=== PATIENT | female | born 1950 | race American Indian/Alaskan Native ===

== ENCOUNTER 2017-07-02 06:00 | Observation (INO) | payer MEDICARE, OTHER ==
[2017-07-02] MEDS ORDERED: Nitroglycerin 0.4 MG Tab.SL SL PRN (06:03)
[2017-07-02] MEDS ORDERED: Sodium Chloride 0.9% 1,000 ML IV ONE (06:03)
[2017-07-02] MEDS ORDERED: Aspirin 81 MG Tab.Chew PO ONE (06:03)
[2017-07-02] MEDS ORDERED: Metoprolol Tartrate 5 MG/5 ML SDV IVPUSH ONE (06:04)
--- NOTE | 2017-07-02 06:07 | EDM.PDOC ---
ED HPI GENERAL MEDICAL PROBLEM - General Stated Complaint: POSSIBLE HEART ATTACK Time Seen by Provider: 07/02/17 06:05 Source of Information: Reports: Patient - History of Present Illness INITIAL COMMENTS - FREE TEXT/NARRATIVE: HISTORY AND PHYSICAL: History of present illness: Patient presents by private vehicle Patient has had some left chest discomfort noted yesterday afternoon she woke this morning due to pain rates 5 out of 10 more left shoulder radiating down the left arm worsened by movement of the left arm not associated with this shortness of breath or diaphoresis No fever nausea vomiting chills sweats no headache dizziness or palpitation no bowel or urine symptoms History of diabetes Review of systems: As per history of present illness and below otherwise all systems reviewed and negative. Past medical history: As per history of present illness and as reviewed below otherwise noncontributory. Surgical history: As per history of present illness and as reviewed below otherwise noncontributory. Social history: No reported history of drug or alcohol abuse. Family history: As per history of present illness and as reviewed below otherwise noncontributory. Physical exam: HEENT: Atraumatic, normocephalic, pupils reactive, negative for conjunctival pallor or scleral icterus, mucous membranes moist, throat clear, neck supple, nontender, trachea midline. Lungs: Clear to auscultation, breath sounds equal bilaterally, chest nontender. Heart: S1S2, regular, negative for clicks, rubs, or JVD. Abdomen: Soft, nondistended, nontender. Negative for masses or hepatosplenomegaly. Negative for costovertebral tenderness. Pelvis: Stable nontender. Genitourinary: Deferred. Rectal: Deferred. Extremities: Atraumatic, negative for cords or calf pain. Neurovascular unremarkable. Neuro: Awake, alert, oriented. Cranial nerves II through XII unremarkable. Cerebellum unremarkable. Motor and sensory unremarkable throughout. Exam nonfocal. Diagnostics: []Lab as below EKG Chest 1 view Therapeutics: []1 L normal saline Aspirin 324 mg chewable Nitrostat 0.4 mg sublingual Lopressor 5 mg IV Impression: ACS Definitive disposition and diagnosis as appropriate pending reevaluation and review of above. Letf shoulder Pain Score (Numeric/FACES): 3 - Related Data Allergies Allergy/AdvReac Type Severity Reaction Status Date / Time codeine Allergy Hallucinati Verified 07/02/17 06:22 ons Home Meds: Home Meds Potassium Chloride 8 meq PO 07/02/17 [History] Saxagliptin HCl [Onglyza] 5 mg PO 07/02/17 [History] Telmisartan 40 mg PO 07/02/17 [History] Travoprost [Travatan Z] 2.5 ml OP 07/02/17 [History] metFORMIN [Glucophage] 500 mg PO WITHDINNER 07/02/17 [History] traMADol HCl [Tramadol HCl] 50 mg PO Q6H 07/02/17 [History] ED ROS GENERAL - Review of Systems Review Of Systems: ROS reveals no pertinent complaints other than HPI. ED EXAM, GENERAL - Physical Exam Exam: See Below Course - Vital Signs Last Recorded V/S: Last Vital Signs Temp 36.4 C 07/02/17 06:22 Pulse 55 L 07/02/17 07:10 Resp 20 07/02/17 06:22 BP 145/67 H 07/02/17 07:10 Pulse Ox 96 07/02/17 06:22 - Orders/Labs/Meds Orders: Active Orders 24 hr Category Date Time Status EKG Documentation Completion [RC] STAT Care 07/02/17 06:03 Active Chest 1V Frontal [CR] Stat Exams 07/02/17 06:03 Taken UA W/MICROSCOPIC [URIN] Stat Lab 07/02/17 06:03 Uncollected Nitroglycerin [Nitrostat] Med 07/02/17 06:03 Active 0.4 mg SL Q5M PRN Medication Orders Nitroglycerin (Nitrostat) 0.4 mg SL Q5M PRN PRN Reason: Chest Pain Last Admin: 07/02/17 06:33 Dose: 0.4 mg Labs: Laboratory Tests 07/02/17 07/02/17 07/02/17 Range/Units 06:20 06:20 06:20 WBC 10.33 (4.0-11.0) K/uL RBC 4.79 (4.30-5.90) M/uL Hgb 13.2 (12.0-16.0) g/dL Hct 40.5 (36.0-46.0) % MCV 84.6 (80.0-98.0) fL MCH 27.6 (27.0-32.0) pg MCHC 32.6 (31.0-37.0) g/dL RDW Std Deviation 47.0 (28.0-62.0) fl RDW Coeff of Fredrick 15 (11.0-15.0) % Plt Count 278 (150-400) K/uL MPV 10.50 (7.40-12.00) fL Neut % (Auto) 65.5 (48.0-80.0) % Lymph % (Auto) 25.8 (16.0-40.0) % [place] % (Auto) 6.3 (0.0-15.0) % Eos % (Auto) 2.2 (0.0-7.0) % Baso % (Auto) 0.2 (0.0-1.5) % Neut # (Auto) 6.8 H (1.4-5.7) K/uL Lymph # (Auto) 2.7 H (0.6-2.4) K/uL [place] # (Auto) 0.7 (0.0-0.8) K/uL Eos # (Auto) 0.2 (0.0-0.7) K/uL Baso # (Auto) 0.0 (0.0-0.1) K/uL Nucleated RBC % 0.0 /100WBC Nucleated RBCs # 0 K/uL Sodium 140 (136-146) mmol/L Potassium 4.2 (3.5-5.1) mmol/L Chloride 106 (98-110) mmol/L Carbon Dioxide 24 (21-31) mmol/L BUN 26 H (6.0-23.0) mg/dL Creatinine 0.9 (0.6-1.5) mg/dL Est Cr Clr Drug Dosing 47.32 mL/min Estimated GFR (MDRD) > 60.0 ml/min Glucose 335 H (60-110) mg/dL Calcium 9.7 (8.8-10.8) mg/dL Total Bilirubin 0.3 (0.1-1.5) mg/dL AST 10 (5-40) IU/L ALT 17 (8-54) IU/L Alkaline Phosphatase 84 (40-150) Creatine Kinase 33 (9-236) IU/L CK-MB (CK-2) 1.0 (0-6.6) ng/ml Troponin I < 0.10 (0.0-0.29) NG/ML Total Protein 7.1 (6.0-8.0) g/dL Albumin 3.8 (3.4-4.8) g/dL Globulin 3.3 (2.0-3.5) g/dL Albumin/Globulin Ratio 1.2 L (1.3-2.8) Meds: Medications Generic Name Dose Route Start Last Admin Trade Name Freq PRN Reason Stop Dose Admin Nitroglycerin 0.4 mg 07/02/17 06:03 07/02/17 06:33 Nitrostat SL 0.4 mg Q5M PRN Administration Chest Pain Discontinued Medications Generic Name Dose Route Start Last Admin Trade Name Freq PRN Reason Stop Dose Admin Aspirin 324 mg 07/02/17 06:03 07/02/17 06:44 Aspirin PO 07/02/17 06:04 324 mg ONETIME ONE Administration Sodium Chloride 1,000 mls @ 999 mls/hr 07/02/17 06:03 07/02/17 06:33 Normal Saline IV 07/02/17 07:03 999 mls/hr STAT ONE Administration Metoprolol Tartrate 5 mg 07/02/17 06:04 07/02/17 07:02 Lopressor IVPUSH 07/02/17 06:05 5 mg ONETIME ONE Administration Departure - Departure Time of Disposition: 07:25 Disposition: Refer to Observation Condition: Fair Clinical Impression: Acute coronary syndrome - Discharge Information Referrals: Sunitha Bowens MD [Primary Care Provider] - - My Orders Last 24 Hours: My Active Orders 07/02/17 06:03 EKG Documentation Completion [RC] STAT Chest 1V Frontal [CR] Stat UA W/MICROSCOPIC [URIN] Stat Nitroglycerin [Nitrostat] 0.4 mg SL Q5M PRN - Assessment/Plan Last 24 Hours: My Active Orders 07/02/17 06:03 EKG Documentation Completion [RC] STAT Chest 1V Frontal [CR] Stat UA W/MICROSCOPIC [URIN] Stat Nitroglycerin [Nitrostat] 0.4 mg SL Q5M PRN
[2017-07-02 06:51] LABS: CHLORIDE,CL 106 mmol/L (98-110); SODIUM,NA 140 mmol/L (136-146)
[2017-07-02] MEDS: Insulin Aspart 100 Units/ML 3 ML Pen SUBCUT SCH ×3 (10:11→16:27)
[2017-07-02] MEDS: Acetaminophen 325 MG Tab PO PRN (11:00)
[2017-07-02] MEDS: Hydrochlorothiazide 25 MG Tab PO SCH (11:28)
--- NOTE | 2017-07-02 11:57 | PCM.HP ---
H&P History of Present Illness - General Date of Service: 07/02/17 Admit Problem/Dx: Admission Diagnosis/Problem Admission Diagnosis/Problem Acute coronary syndrome Source of Information: Patient History Limitations: Reports: No Limitations - History of Present Illness Initial Comments - Free Text/Narative: 66 yo fm with history of HTN & DM admitted for ACS. She states she woke up this morning feeling an achy pain in her left shoulder that radiated down her arm and also possibly towards her neck. The pain was continuous and she rates it 6/ 10. All movements of her arm made the pain worst. She denies ever feeling any of this pain in the past and denies any history of recent or past trauma. SHe was feeling perfectly well up until she went to sleep. When asked she also notes some pain in the base of her neck and the left lateral side that worsens with neck flexion and left lateral rotation. She denies any previous injury to her neck. She further denies any weakness, numbness, tingling, shoulder swelling , sob, cough, vision change, headache, balance dysfunction, chest pain, palpitations, tachycardia. She does report MATTHEWS for the past several weeks, mostly with walking long distances and she has noticed some swelling of her feet and calves but she denies any orthopnea or PND. She lives in [place] and sees Dr. Bowens as her PCP. She last saw her few weeks ago. For her DM she is on Metformin 1000 mg QD and Saxagliptin 5 mg daily. Her Saxagliptin was recently increased due to elevated blood glucose. Patient states that she has been checking her blood glucose at home and it has ranged from 200-300 for the past 2 weeks. Letf shoulder Pain Score (Numeric/FACES): 5 - Related Data Allergies/Adverse Reactions: Allergies Allergy/AdvReac Type Severity Reaction Status Date / Time codeine Allergy Hallucinati Verified 07/02/17 06:22 ons Home Medications: Home Meds Hydrochlorothiazide [Hydrochlorothiazide] 25 mg PO DAILY 07/02/17 [History] Potassium Chloride 8 meq PO DAILY 07/02/17 [History] Saxagliptin HCl [Onglyza] 5 mg PO DAILY 07/02/17 [History] Telmisartan 40 mg PO DAILY 07/02/17 [History] Travoprost [Travatan Z] 1 drop OP BEDTIME 07/02/17 [History] metFORMIN [Glucophage] 1,000 mg PO WITHDINNER 07/02/17 [History] traMADol HCl [Tramadol HCl] 50 mg PO Q6H 07/02/17 [History] Past Medical History HEENT History: Reports: Cataract Cardiovascular History: Reports: Hypertension Endocrine/Metabolic History: Reports: Diabetes, Type II - Infectious Disease History Infectious Disease History: Reports: Chicken Pox, Measles, Mumps - Past Surgical History Cardiovascular Surgical History: Reports: None Social & Family History - Family History Family Medical History: Noncontributory - Tobacco Use Smoking Status *Q: Never Smoker - Caffeine Use Caffeine Use: Reports: Coffee - Recreational Drug Use Recreational Drug Use: No H&P Review of Systems - Review of Systems: Review Of Systems: See Below General: Reports: No Symptoms HEENT: Reports: No Symptoms Pulmonary: Reports: No Symptoms. Denies: Shortness of Breath, Wheezing, Pleuritic Chest Pain, Cough, Sputum, Hemoptysis Cardiovascular: Reports: Dyspnea on Exertion, Edema. Denies: Chest Pain, Palpitations, Orthopnea, PND, Lightheadedness, Syncope Gastrointestinal: Reports: No Symptoms Genitourinary: Reports: No Symptoms Musculoskeletal: Reports: Neck Pain, Shoulder Pain Skin: Reports: No Symptoms Psychiatric: Reports: No Symptoms Neurological: Reports: No Symptoms. Denies: Dizziness, Headache, Numbness, Paresthesia, Pre-Existing Deficit, Tingling, Weakness, Gait Disturbance Hematologic/Lymphatic: Reports: No Symptoms Immunologic: Reports: No Symptoms Exam - Exam Exam: See Below - Vital Signs Vital Signs: Last Vital Signs Temp 36.2 C 07/02/17 09:02 Pulse 61 07/02/17 09:02 Resp 18 07/02/17 09:02 BP 150/77 H 07/02/17 11:00 Pulse Ox 96 07/02/17 09:02 Weight: 114.215 kg - Exam General: Alert, Oriented, Cooperative HEENT: Conjunctiva Clear Neck: Supple, Full Range of Motion (pain with flexion and left lateral rotation ). No: Carotid Bruit, JVD, Thyromegaly Lungs: Normal Respiratory Effort, Decreased Breath Sounds (left base and midlung ), Rhonchi (left base and midlung ) Cardiovascular: Regular Rate, Regular Rhythm GI/Abdominal Exam: Normal Bowel Sounds, Soft, Non-Tender Back Exam: Normal Inspection, Full Range of Motion, CVA Tenderness (L). No: Vertebral Tenderness Extremities: Normal Inspection, Normal Range of Motion, Non-Tender, Other (left shoulder: mild pain with abduction ) Neurological: Cranial Nerves Intact, Strength Equal Bilateral Neuro Extensive - Mental Status: Alert, Oriented x3 DTR: 2+: Bicep (L), Bicep (R), Tricep (L), Tricep (R) - Patient Data Result Diagrams: 07/02/17 06:20 07/02/17 06:20 *Q Meaningful Use (ADM) - VTE *Q VTE Criteria *Q: - Stroke *Q Stroke Criteria *Q: - AMI *Q AMI Criteria *Q: Problem List Initiated/Reviewed/Updated: Yes Orders Last 24hrs: Active Orders 24 hr Category Date Time Status Patient Status [ADT] Routine ADT 07/02/17 09:50 Active Antiembolic Devices [RC] PER UNIT ROUTINE Care 07/02/17 09:58 Active Blood Glucose Check, Bedside [RC] TIDMEALS Care 07/02/17 09:50 Active Cardiac Monitoring [RC] CONTINUOUS Care 07/02/17 09:54 Active Height and Weight [RC] DAILY Care 07/02/17 09:50 Active Intake and Output [RC] Q12H Care 07/02/17 09:54 Active Oxygen Therapy [RC] PRN Care 07/02/17 09:50 Active Telemetry Monitoring [Cardiac Monitoring] [RC] . Care 07/02/17 07:49 Active DIRECTED Up ad [place] [RC] ASDIRECTED Care 07/02/17 09:50 Active Vital Signs [RC] Q4H Care 07/02/17 09:50 Active [place] [employer] Diet [DIET] Diet 07/02/17 Lunch Active Cervical Spine 2V or 3V [CR] Routine Exams 07/02/17 09:50 Taken Shoulder Comp Lt [CR] Routine Exams 07/02/17 09:50 Taken B-TYPE NATRIURETIC PEPTIDE,BNP [CHEM] Routine Lab 07/02/17 06:20 Received TROPONIN I [CHEM] Routine Lab 07/02/17 12:30 Ordered TROPONIN I [CHEM] Routine Lab 07/02/17 18:30 Ordered Acetaminophen [Tylenol] Med 07/02/17 09:50 Active 650 mg PO Q4H PRN Enoxaparin [Lovenox] Med 07/03/17 09:00 Active 40 mg SUBCUT DAILY Hydrochlorothiazide Med 07/02/17 11:15 Active 25 mg PO DAILY Insulin Aspart [NovoLOG] Med 07/02/17 10:00 Active See Protocol SUBCUT TIDAC Patient's Own Medication [Ptom] Med 07/02/17 21:00 Active 1 each EYEBOTH BEDTIME Telmisartan [Micardis] Med 07/02/17 10:23 Active 40 mg PO DAILY Sequential Compression Device [OM.PC] Per Unit Routine Oth 07/02/17 09:55 Ordered Resuscitation Status Routine Resus Stat 07/02/17 09:50 Ordered Medication Orders Acetaminophen (Tylenol) 650 mg PO Q4H PRN PRN Reason: Pain (Mild 1-3)/fever Last Admin: 07/02/17 11:00 Dose: 650 mg Enoxaparin Sodium (Lovenox) 40 mg SUBCUT DAILY [place] Hydrochlorothiazide (Hydrochlorothiazide) 25 mg PO DAILY [facility] Last Admin: 07/02/17 11:28 Dose: 25 mg Insulin Aspart (Novolog) 0 unit SUBCUT TIDAC [facility] PRN Reason: Protocol Last Admin: 07/02/17 11:28 Dose: 2 units Admin: 07/02/17 10:11 Dose: Nitroglycerin (Nitrostat) 0.4 mg SL Q5M PRN PRN Reason: Chest Pain Last Admin: 07/02/17 06:33 Dose: 0.4 mg Travoprost [Travatan (Z] 1 Drop) 1 each EYEBOTH BEDTIME [place] Telmisartan (Micardis) 40 mg PO DAILY [facility] Last Admin: 07/02/17 11:00 Dose: 40 mg Assessment/Plan Comment:: Assessment: 66 yo fm with history of HTN and DM admitted for chest pain. EKG shows low voltage otherwise WNL. CXR shows cardiomegaly, atelectasis and possible left sided effusion/infiltrate. Initial Troponin negative. Patient still complaining of shoulder pain but denies chest pain. 1. Left Shoulder Pain/ACS -radiates down left arm and toward left lateral neck -no tenderness, no swelling, full ROM, mild pain with abduction -mild pain with neck extension and neck lateral rotation 2. Cardiomegaly -seen on CXR, with possible left sided effusion/infiltrate -diminished left sided breath sounds, 1+ BL Pedal edema -EKG in ED was WNL 3. PMH Hypertension -BP ranged from 150-190 since presenting to ED -has not had HTN meds today -on Telmisartan 40 mg daily & HCTZ 25 mg daily 4. PMH DM -on Metformin 1000 mg QD & Saxagliptin 5 mg QD -Saxagliptin recently increased by PCP due to poor blood glucose control -Hyperglycemia in ED with BG 334, patient reports home BG 200-300 Plan: 1. Left Shoulder Pain/ACS -continue ACS protocol until r/o confirmed: telemetry, troponin q6h for total 3 readings -order XR of shoulder and C-spine to evaluate for possible musculoskeletal source -start Acetaminophen PRN and resume patients home Tramadol 2. Cardiomegaly -order BNP -order echocardiogram 3. HTN -resume home dose of Telmisartan 40 mg daily & HCTZ 25 mg daily 4. DM -Hold home metformin & Saxagliptan -start insulin low dose sliding scale TIDAC with fingerstick monitoring -diabetic diet
--- NOTE | 2017-07-02 15:26 | CR ---
EXAMINATION: Cervical spine HISTORY: Pain COMPARISON: None TECHNIQUE: AP and lateral views FINDINGS: The cervical spinal alignment is normal. The vertebral body heights and disc spaces appear grossly maintained. Prominent anterior osteophytes are noted. No fracture or acute osseous abnormalit y. The prevertebral soft tissues appear normal. Bone mineralization appears normal. IMPRESSION: Moderate degenerative changes without acute findings.
--- NOTE | 2017-07-02 15:27 | CR ---
EXAMINATION: Left shoulder HISTORY: Pain COMPARISON: None TECHNIQUE: 3 views FINDINGS/IMPRESSION: There is no acute osseous abnormality, dislocation, or fracture. The acromioclav icular and glenohumeral joint spaces are normal. Bone mineralization is normal.
[2017-07-02] MEDS: Insulin Glargine,Human Rec. Analog 100 Units/ML 3 ML Pen SUBCUT SCH ×2 (18:12→20:37)
[2017-07-02] MEDS ORDERED: traMADol 50 MG Tab PO SCH (18:30)
[2017-07-02] MEDS ORDERED: Metoprolol Tartrate 50 MG Tab PO PRN ×3 (18:53→22:00)
--- NOTE | 2017-07-02 19:12 | CR ---
EXAM DATE: 07/02/17 PATIENT'S AGE: 66 Patient: KISHOR BAUM Facility: [place], [place] Site . Site : [id number] Study: XRay Chest [id number]/[id number] 7:13:53 AM Ordering Physician: Doctor Prieto Final Report: INDICATION: Pain. Technique: AP portable chest x-ray. Findings: Heart size upper limits of normal. Moderate elevation and/or eventration right hemidiaphragm. Mild amount of opacity in the right lung base along the hemidiaphragm could be related atelectasis but cannot exclude mild hazy infiltrate. Lungs otherwise clear. Lungs are somewhat hyperinflated or there has been a deep inspiration. Crowding of the bronchovascular markings in the right perihilar and infrahilar region likely related to elevated right hemidiaphragm. Chest otherwise unremarkable. Dictated by Oziel Louis MD @ Jul 02 2017 7:25AM (Electronic Signature) Report Signed by Proxy. [email or web address]
[2017-07-02] MEDS: traMADol 50 MG Tab PO PRN (20:35)
[2017-07-02] MEDS ORDERED: Travoprost [Travatan Z] 1 DROP EYEBOTH SCH (21:00)
[2017-07-03] MEDS: Insulin Aspart 100 Units/ML 3 ML Pen SUBCUT SCH ×3 (07:19→16:19)
[2017-07-03] MEDS: Hydrochlorothiazide 25 MG Tab PO SCH (08:10)
[2017-07-03] MEDS: traMADol 50 MG Tab PO PRN ×2 (08:26→15:33)
[2017-07-03] MEDS ORDERED: Enoxaparin 40 MG/0.4 ML Syringe SUBCUT SCH (09:00)
[2017-07-03 09:35] LABS: CHLORIDE,CL 106 mmol/L (98-110); SODIUM,NA 140 mmol/L (136-146)
[2017-07-03] MEDS: Acetaminophen 325 MG Tab PO PRN (13:07)
[2017-07-03 16:18] VITALS: BP 170/90
--- NOTE | 2017-07-03 19:06 | PCM.DCSUM1 ---
<Adilene,Sujit - Last Filed: 07/05/17 02:12> Discharge Summary - Hospital Course Free Text/Narrative:: 66 year fm with history of HTN, DM and Hyperlipidemia was admitted 07/02 for atypical chest/LUE pain. She presented to ED with complains of pain in her left upper chest and left shoulder that radiated into her neck and down her left arm. Initial workup in ED included cbc, cmp, troponin, EKG & CXR. Her BG was found to be 335 & CXR that revealed cardiomegaly & left infiltrate. She was transferred to floor for observation. 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 The pain was constant and worsened with movement. Pain also intermittently radiated down her left arm. Movement of arm caused worsening of pain. On exam she was noted to have full ROM, strength 5/5 with pain that decreased with left shoulder elevation and external rotation. She had no tenderness or swelling at site of pain. She specifically denied any chest pain, palpitations, sob, vision change, weakness, numbness, tingling, headache or urinary changes. Overnight Telemetry & Troponin x3 were both negative. XR of left shoulder was negative. XR of C-spine showed moderate degenerative changes. PT was started which helped improve pain. Heating pad was used overnight which also helped improve pain. Echo was obtained to r/o CHF but results were not available at discharge. During hospitalization patients hyperglycemia persisted and HbA1C found to be 10.4%. She stated that she tests home BG regularly and has been 200-300. She was started on Insulin and her Saxagliptin was DC. Her BP was also persistently elevated therefore her Micardis was increased to 80 mg daily. [place] BG and BP were not achieved, patient was notified of this and told how important maintaining f/u is. Her f/u was scheduled with her PCP Dr. Bowens. She was instructed to record home BP and home BG and bring log to f/u appointment. Discharge Diagnosis/Plan: 1. Left Shoulder Pain, presumed to be musculoskeletal -Heat Therapy, Stretching -f/u with PCP 2. Pulmonary Effusion/Infiltrate -Echo performed awaiting results, will be sent to PCP when available -f/u with cardiology, Dr. Fulton -f/u with PCP 3. HTN -increase Micardis from 40 mg QD to 80 mg QD -purchase bp home monitor and record daily 2-3x per day -f/u with pcp, bring logs to appointment 4. Uncontrolled DM -DC Saxagliptin -continue Metformin -start Lantus 10 units PM -start Novolog TIDAC as per sliding scale -DM educators consulted for insulin administration and BG testing -f/u with PCP, bring home BG log to appointment - Discharge Data Discharge Date: 07/03/17 Discharge Disposition: Home, Self-Care 01 Condition: Fair - Patient Summary/Data Consults: Consultations 07/02/17 18:05 Consult to Diabetic Nurse Specialist [CONS] Routine 07/03/17 11:35 OT Evaluation and Treatment [CONS] Routine Labs Pending at D/C: Echocardiogram performed but was not read. Results will be forwarded to Dr. Fulton and Dr. Bowens. - Patient Instructions Diet: Diabetic Diet Activity: Apply Ice Notify Provider of: Fever, Increased Pain, Swelling and Redness, Drainage, Nausea and/or Vomiting - Discharge Plan Prescriptions/Med Rec: Insulin Aspart [NovoLOG] 0 unit SUBCUT TIDAC #1 box Insulin Glarg,Human.Rec.Analog [LantUS Solostar] 10 units SUBCUT BEDTIME #1 box Pen Needle, Diabetic [Bd Ultra-Fine Pen Needle] 1 each MC TIDAC #1 box Telmisartan 80 mg PO DAILY #60 tablet Home Medications: Home Meds Cyanocobalamin (Vitamin B12) [Vitamin B12] 1,000 mcg IM Q30D 07/02/17 [History] Diclofenac Sodium 1 applic TOP QID PRN 07/02/17 [History] Hydrochlorothiazide 25 mg PO DAILY 07/02/17 [History] Potassium Chloride 8 meq PO DAILY 07/02/17 [History] Travoprost [Travatan Z] 1 drop EYEBOTH BEDTIME 07/02/17 [History] metFORMIN [Glucophage] 1,000 mg PO BIDMEALS 07/02/17 [History] traMADol HCl [Tramadol HCl] 50 mg PO Q6H PRN 07/02/17 [History] Insulin Aspart [NovoLOG] 0 unit SUBCUT TIDAC #1 box 07/03/17 [Rx] Insulin Glarg,Human.Rec.Analog [LantUS Solostar] 10 units SUBCUT BEDTIME #1 box 07/03/17 [Rx] Pen Needle, Diabetic [Bd Ultra-Fine Pen Needle] 1 each TIDAC #1 box 07/03/17 [Rx] Telmisartan 80 mg PO DAILY #60 tablet 07/03/17 [Rx] Patient Handouts: Insulin Aspart; Insulin Aspart Protamine injection, Telmisartan tablets, Acute Coronary Syndrome, Insulin Glargine injection Referrals: Sarita Fulton MD [Physician] - 07/10/17 9:15 am Sunitha Bowens MD [Primary Care Provider] - 07/11/17 10:00 am - Patient Data Vitals - Most Recent: Last Vital Signs Temp 36.3 C 07/03/17 16:00 Pulse 56 L 07/03/17 16:00 Resp 16 07/03/17 16:00 BP 170/90 H 07/03/17 16:00 Pulse Ox 96 07/03/17 16:00 Weight - Most Recent: 114.215 kg I&O - Last 24 hours: Intake & Output 07/03/17 07/03/17 07/03/17 06:59 14:59 22:59 Intake Total 320 1560 Output Total 1700 1300 Balance -1380 260 Lab Results - Last 24 hrs: Laboratory Results - last 24 hr 07/02/17 07/03/17 07/03/17 Range/Units 20:26 06:24 08:50 Sodium 140 (136-146) mmol/L Potassium 4.7 (3.5-5.1) mmol/L Chloride 106 (98-110) mmol/L Carbon Dioxide 25 (21-31) mmol/L BUN 28 H (6.0-23.0) mg/dL Creatinine 0.8 (0.6-1.5) mg/dL Est Cr Clr Drug Dosing 53.23 mL/min Estimated GFR (MDRD) > 60.0 ml/min Glucose 282 H (60-110) mg/dL POC Glucose 250 H 189 H (60-110) mg/dL Calcium 9.3 (8.8-10.8) mg/dL 07/03/17 Range/Units 11:51 Sodium (136-146) mmol/L Potassium (3.5-5.1) mmol/L Chloride (98-110) mmol/L Carbon Dioxide (21-31) mmol/L BUN (6.0-23.0) mg/dL Creatinine (0.6-1.5) mg/dL Est Cr Clr Drug Dosing mL/min Estimated GFR (MDRD) ml/min Glucose (60-110) mg/dL POC Glucose 196 H (60-110) mg/dL Calcium (8.8-10.8) mg/dL Med Orders - Current: Current Medications Acetaminophen (Tylenol) 650 mg PO Q4H PRN PRN Reason: Pain (Mild 1-3)/fever Last Admin: 07/03/17 13:07 Dose: 650 mg Enoxaparin Sodium (Lovenox) 40 mg SUBCUT DAILY [facility] Last Admin: 07/03/17 08:11 Dose: 40 mg Hydrochlorothiazide (Hydrochlorothiazide) 25 mg PO DAILY [facility] Last Admin: 07/03/17 08:10 Dose: 25 mg Insulin Aspart (Novolog) 0 unit SUBCUT TIDAC [facility] PRN Reason: Protocol Last Admin: 07/03/17 16:19 Dose: 1 units Insulin Glargine (Lantus Solostar) 10 units SUBCUT BEDTIME [facility] Last Admin: 07/02/17 20:37 Dose: 10 units Nitroglycerin (Nitrostat) 0.4 mg SL Q5M PRN PRN Reason: Chest Pain Last Admin: 07/02/17 06:33 Dose: 0.4 mg Travoprost [Travatan (Z] 1 Drop) 1 each EYEBOTH BEDTIME [facility] Last Admin: 07/02/17 20:45 Dose: 1 each Telmisartan (Micardis) 80 mg PO DAILY [facility] Tramadol HCl (Ultram) 50 mg PO Q6H PRN PRN Reason: Pain Last Admin: 07/03/17 15:33 Dose: 50 mg Discontinued Medications Aspirin (Aspirin) 324 mg PO ONETIME ONE Stop: 07/02/17 06:04 Last Admin: 07/02/17 06:44 Dose: 324 mg Sodium Chloride (Normal Saline) 1,000 mls @ 999 mls/hr IV STAT ONE Stop: 07/02/17 07:03 Last Admin: 07/02/17 06:33 Dose: 999 mls/hr Metoprolol Tartrate (Lopressor) 5 mg IVPUSH ONETIME ONE Stop: 07/02/17 06:05 Last Admin: 07/02/17 07:02 Dose: 5 mg Metoprolol Tartrate (Lopressor) 50 mg PO Q12HR PRN PRN Reason: SBP>150 or DBP>90 Metoprolol Tartrate (Lopressor) 50 mg PO Q12HR PRN PRN Reason: SBP>150 or DBP>90 Metoprolol Tartrate (Lopressor) 50 mg PO Q12HR PRN PRN Reason: SBP>150 or DBP>90 Last Admin: 07/02/17 19:07 Dose: 50 mg Telmisartan (Micardis) 40 mg PO DAILY [facility] Telmisartan (Micardis) 40 mg PO DAILY [facility] Last Admin: 07/03/17 08:02 Dose: 40 mg Telmisartan (Micardis) 40 mg PO NOW ONE Stop: 07/03/17 11:35 Last Admin: 07/03/17 13:04 Dose: 40 mg Tramadol HCl (Ultram) 50 mg PO Q6H [facility] Last Admin: 07/02/17 19:25 Dose: Not Given *Q Meaningful Use (DIS) - VTE *Q VTE Criteria *Q: - Stroke *Q Stroke Criteria *Q: - AMI *Q AMI Criteria *Q: <Andrew Shaver - Last Filed: 07/05/17 15:37> Discharge Summary - Patient Summary/Data Consults: Consultations 07/02/17 18:05 Consult to Diabetic Nurse Specialist [CONS] Routine 07/03/17 11:35 OT Evaluation and Treatment [CONS] Routine - Patient Data Vitals - Most Recent: Last Vital Signs Temp 36.3 C 07/03/17 16:00 Pulse 56 L 07/03/17 16:00 Resp 16 07/03/17 16:00 BP 170/90 H 07/03/17 16:00 Pulse Ox 96 07/03/17 16:00 Med Orders - Current: Current Medications Discontinued Medications Acetaminophen (Tylenol) 650 mg PO Q4H PRN PRN Reason: Pain (Mild 1-3)/fever Last Admin: 07/03/17 13:07 Dose: 650 mg Aspirin (Aspirin) 324 mg PO ONETIME ONE Stop: 07/02/17 06:04 Last Admin: 07/02/17 06:44 Dose: 324 mg Enoxaparin Sodium (Lovenox) 40 mg SUBCUT DAILY [facility] Last Admin: 07/03/17 08:11 Dose: 40 mg Hydrochlorothiazide (Hydrochlorothiazide) 25 mg PO DAILY [facility] Last Admin: 07/03/17 08:10 Dose: 25 mg Sodium Chloride (Normal Saline) 1,000 mls @ 999 mls/hr IV STAT ONE Stop: 07/02/17 07:03 Last Admin: 07/02/17 06:33 Dose: 999 mls/hr Insulin Aspart (Novolog) 0 unit SUBCUT TIDAC [facility] PRN Reason: Protocol Last Admin: 07/03/17 16:19 Dose: 1 units Insulin Glargine (Lantus Solostar) 10 units SUBCUT BEDTIME [facility] Last Admin: 07/02/17 20:37 Dose: 10 units Metoprolol Tartrate (Lopressor) 5 mg IVPUSH ONETIME ONE Stop: 07/02/17 06:05 Last Admin: 07/02/17 07:02 Dose: 5 mg Metoprolol Tartrate (Lopressor) 50 mg PO Q12HR PRN PRN Reason: SBP>150 or DBP>90 Metoprolol Tartrate (Lopressor) 50 mg PO Q12HR PRN PRN Reason: SBP>150 or DBP>90 Metoprolol Tartrate (Lopressor) 50 mg PO Q12HR PRN PRN Reason: SBP>150 or DBP>90 Last Admin: 07/02/17 19:07 Dose: 50 mg Nitroglycerin (Nitrostat) 0.4 mg SL Q5M PRN PRN Reason: Chest Pain Last Admin: 07/02/17 06:33 Dose: 0.4 mg Travoprost [Travatan (Z] 1 Drop) 1 each EYEBOTH BEDTIME [facility] Last Admin: 07/02/17 20:45 Dose: 1 each Telmisartan (Micardis) 40 mg PO DAILY [facility] Telmisartan (Micardis) 40 mg PO DAILY [facility] Last Admin: 07/03/17 08:02 Dose: 40 mg Telmisartan (Micardis) 80 mg PO DAILY [facility] Telmisartan (Micardis) 40 mg PO NOW ONE Stop: 07/03/17 11:35 Last Admin: 07/03/17 13:04 Dose: 40 mg Tramadol HCl (Ultram) 50 mg PO Q6H [facility] Last Admin: 07/02/17 19:25 Dose: Not Given Tramadol HCl (Ultram) 50 mg PO Q6H PRN PRN Reason: Pain Last Admin: 07/03/17 15:33 Dose: 50 mg *Q Meaningful Use (DIS) - VTE *Q VTE Criteria *Q: - Stroke *Q Stroke Criteria *Q: - AMI *Q AMI Criteria *Q: - Free Text/Narrative Note: I have examined patient. I have discussed findings and treatment plan with the resident. I agree with the assessment and plan of the following resident's note.
--- NOTE | 2017-07-05 10:38 | ECHO ---
EXAM DATE: 07/02/17 PATIENT'S AGE: 66 The echocardiogram report can be seen in this patient's EMR (Electronic Medical Record) in the Reports section. The report has also been scanned into PACS. [email or web address]
== END 2017-07-03 19:25 | disposition home or self-care (01) ==
LOC: MW.ED 06:00 → MW.MS 07:25 → MW.ED 08:43
PROVIDERS: ADMIT Internal Medicine; ATTEND Internal Medicine
DX: I11.9 Hypertensive heart disease without heart failure (principal); J98.11 Atelectasis; J90 Pleural effusion, not elsewhere classified; E11.65 Type 2 diabetes mellitus with hyperglycemia; M25.512 Pain in left shoulder; Z88.5 Allergy status to narcotic agent; Z79.84 Long term (current) use of oral hypoglycemic drugs; Z79.899 Other long term (current) drug therapy; R06.09 Other forms of dyspnea
CPT/HCPCS: 36415; 71010; 72040; 73030; 80048; 80053; 82550; 82553; 82962; 83036; 83880; 84484; 85025; 93005; 93306; 96361; 96372; 96374; 97165; 99285; A9270; G0378; J1650; J1815; J7040; 99283

== ENCOUNTER 2023-10-24 09:11 | Emergency (ER) | payer MEDICARE, OTHER ==
[2023-10-24] MEDS ORDERED: Ondansetron 4 MG/2 ML SDV IVPUSH ONE (09:39)
[2023-10-24] MEDS ORDERED: Morphine 4 MG/ML Syringe IVPUSH ONE (09:39)
[2023-10-24 09:46] LABS: HEMATOCRIT 29.4 % (37.0-47.0); HEMOGLOBIN 9.5 g/dL (12.0-16.0); MEAN CORPUSCULAR HGB CONC 32.3 g/dL (32.0-36.0); MEAN CORPUSCULAR VOLUME 96.1 fL (83.0-99.0); MEAN PLATELET VOLUME 10.9 fL (9.4-12.3); PLATELET COUNT,PLT 243 K/uL (150-400); RED BLOOD CELL COUNT 3.06 M/uL (4.10-5.30); WHITE BLOOD CELL COUNT,WBC 17.57 K/uL (3.9-11.3)
[2023-10-24 10:06] LABS: A/G RATIO 0.8 (0.9-1.6); ALBUMIN 3.1 g/dL (3.4-5.0); BILIRUBIN TOTAL 0.4 mg/dL (0.2-1.0); CALCIUM 8.1 mg/dL (8.5-10.1); CREATININE 11.8 mg/dL (0.6-1.0); EST CRCL DRUG DOSING (CG) 3.26 mL/min; MAGNESIUM 2.1 mg/dL (1.8-2.4); POTASSIUM,K 5.5 mmol/L (3.5-5.1); PROTEIN TOTAL,TP 7.2 g/dL (6.4-8.2)
[2023-10-24 10:13] LABS: D-DIMER QUANTITATIVE 0.75 mg/L FEU (0.00-0.50); INR 1.17 (0.86-1.11); PTT,PARTIAL THROMBOPLSTIN TIME 31.6 SEC (23.9-30.7)
[2023-10-24] MEDS ORDERED: Heparin Sodium 5,000 Units/ML Vial IVPUSH ONE (10:19)
[2023-10-24 10:26] LABS: LYMPHOCYTES ABSOLUTE MAN 1.76 K/uL (1.00-4.80); LYMPHOCYTES PERCENT MAN 10 % (24-44); MONOCYTES ABSOLUTE MAN 1.05 K/uL (0.00-0.80); MONOCYTES PERCENT MAN 6 % (0-8); SEG NEUTROPHILS ABSOLUTE MAN 14.76 K/uL (1.80-7.70); SEG NEUTROPHILS PERCENT MAN 84 % (41-71)
[2023-10-24] MEDS ORDERED: Heparin Sodium/0.45% NaCl 500 ML IV SCH (10:30)
[2023-10-24] MEDS ORDERED: Iopamidol 755 MG/ML 500 ML Multipack Bottle IVPUSH STA (10:53)
[2023-10-24 11:44] VITALS: BP 112/59; PULSE 117
== END 2023-10-24 15:19 ==
LOC: MW.ED 09:11
DX: R07.89 Other chest pain (principal); R79.89 Other specified abnormal findings of blood chemistry; I12.0 Hypertensive chronic kidney disease with stage 5 chronic kidney disease or end stage renal disease; N18.6 End stage renal disease; E11.22 Type 2 diabetes mellitus with diabetic chronic kidney disease; Z99.2 Dependence on renal dialysis; Z95.5 Presence of coronary angioplasty implant and graft; Z79.82 Long term (current) use of aspirin; Z79.84 Long term (current) use of oral hypoglycemic drugs; Z79.899 Other long term (current) drug therapy; Z88.5 Allergy status to narcotic agent; Z86.16 Personal history of COVID-19
CPT/HCPCS: 36415; 71045; 71275; 80053; 83735; 83880; 84484; 85025; 85379; 85610; 85730; 93005; 96365; 96366; 96375; 99285; J1644; J2270; J2405; Q9967; 93010

== ENCOUNTER 2023-11-07 16:15 | Emergency (ER) | payer MEDICARE, OTHER ==
[2023-11-07] MEDS: Sodium Chloride 0.9% 2.5 ML Syringe FLUSH PRN (16:54)
[2023-11-07] MEDS: Sodium Chloride 0.9% 10 ML Syringe FLUSH PRN (16:54)
[2023-11-07] MEDS: Diltiazem 25 MG/5 ML SDV IVPUSH ONE ×2 (16:54→17:51)
[2023-11-07 17:21] LABS: BASOPHILS ABSOLUTE AUTO 0.05 K/uL (0.00-0.20); BASOPHILS PERCENT AUTO 0.5 % (0.0-1.0); EOSINOPHILS PERCENT AUTO 3.2 % (0.0-6.0); HEMOGLOBIN 10.3 g/dL (12.0-16.0); IMMATURE GRAN ABSOLUTE AUTO 0.02 K/uL (0.00-0.05); IMMATURE GRAN PERCENT AUTO 0.2 % (0.0-0.4); LYMPHOCYTES ABSOLUTE AUTO 2.53 K/uL (1.00-4.80); LYMPHOCYTES PERCENT AUTO 26.7 % (24.0-44.0); MEAN CORPUSCULAR HEMOGLOBIN 31.5 pg (28.0-32.0); MEAN CORPUSCULAR HGB CONC 32.2 g/dL (32.0-36.0); MEAN CORPUSCULAR VOLUME 97.9 fL (83.0-99.0); MEAN PLATELET VOLUME 10.2 fL (9.4-12.3); MONOCYTES ABSOLUTE AUTO 1.04 K/uL (0.00-0.80); NEUTROPHILS ABSOLUTE AUTO 5.54 K/uL (1.80-7.70); NEUTROPHILS PERCENT AUTO 58.4 % (41.0-71.0); PLATELET COUNT,PLT 314 K/uL (150-400); RED BLOOD CELL COUNT 3.27 M/uL (4.10-5.30); WHITE BLOOD CELL COUNT,WBC 9.48 K/uL (3.9-11.3)
[2023-11-07 17:35] LABS: A/G RATIO 0.7 (0.9-1.6); BILIRUBIN TOTAL 0.6 mg/dL (0.2-1.0); CALCIUM 8.9 mg/dL (8.5-10.1); CARBON DIOXIDE,CO2 34.5 mmol/L (21.0-32.0); CREATININE 2.8 mg/dL (0.6-1.0); EST CRCL DRUG DOSING (CG) 13.73 mL/min; MAGNESIUM 1.5 mg/dL (1.8-2.4); PHOSPHORUS 2.5 mg/dL (2.6-4.7); POTASSIUM,K 3.1 mmol/L (3.5-5.1); PROTEIN TOTAL,TP 7.3 g/dL (6.4-8.2)
[2023-11-07] MEDS: Diltiazem 100 MG in Sodium Chloride 0.9% 100 ML IV SCH (18:28)
[2023-11-07] MEDS: Sodium Chloride 0.9% 250 ML IV SCH (18:34)
[2023-11-07] MEDS: Sodium Chloride 0.9% 500 ML IV SCH (19:52)
[2023-11-07] MEDS: Magnesium Sulfate/Water 2 GM in Premix Bag 1 BAG IV ONE (20:30)
[2023-11-07 20:43] VITALS: BP 101/40; PULSE 126
[2023-11-07] MEDS ORDERED: Amiodarone 300 MG in Dextrose 5% in Water 100 ML IV ONE (21:00)
[2023-11-07] MEDS: [UNRECOGNIZED DRUG - OTHER] IV ONE (21:37)
[2023-11-07] MEDS: AMIODARONE IV ONE (21:37)
[2023-11-07] MEDS: DEXTROSE IV ONE (21:37)
[2023-11-07] MEDS: Amiodarone In Dextrose,Iso-Osm 150 MG in Premix Bag 1 BAG IV ONE ×2 (21:48→21:49)
[2023-11-08] MEDS ORDERED: Midodrine 5 MG Tab PO ONE (19:25)
== END 2023-11-07 21:49 ==
LOC: MW.ED 16:15
DX: I48.91 Unspecified atrial fibrillation (principal); R00.2 Palpitations; I10 Essential (primary) hypertension; E11.9 Type 2 diabetes mellitus without complications; Z95.5 Presence of coronary angioplasty implant and graft; Z79.82 Long term (current) use of aspirin; Z88.5 Allergy status to narcotic agent
CPT/HCPCS: 36415; 71045; 80053; 83735; 83880; 84100; 84484; 85025; 93005; 96365; 96366; 96367; 96375; 96376; 99285; J0282; J3475; J3490; J7040; J7050; J7060; 93010; 99291

== ENCOUNTER 2023-11-21 11:57 | Emergency (ER) | payer MEDICARE, OTHER ==
[2023-11-21 13:27] LABS: HEMATOCRIT 26.1 % (37.0-47.0); HEMOGLOBIN 8.3 g/dL (12.0-16.0); MEAN CORPUSCULAR HEMOGLOBIN 30.6 pg (28.0-32.0); MEAN CORPUSCULAR HGB CONC 31.8 g/dL (32.0-36.0); MEAN CORPUSCULAR VOLUME 96.3 fL (83.0-99.0); MEAN PLATELET VOLUME 10.5 fL (9.4-12.3); NRBC ABSOLUTE 0.11 K/uL (0.00-0.02); NRBC PERCENT 0.6 /100WBC (0.0-0.2); PLATELET COUNT,PLT 364 K/uL (150-400); RED BLOOD CELL COUNT 2.71 M/uL (4.10-5.30); WHITE BLOOD CELL COUNT,WBC 18.68 K/uL (3.9-11.3)
[2023-11-21] MEDS: Sodium Chloride 0.9% 500 ML IV SCH (13:30)
[2023-11-21] MEDS: Sodium Chloride 0.9% 10 ML Syringe FLUSH PRN (13:31)
[2023-11-21] MEDS: Sodium Chloride 0.9% 2.5 ML Syringe FLUSH PRN (13:31)
[2023-11-21] MEDS: Ondansetron 4 MG/2 ML SDV IVPUSH ONE (13:35)
[2023-11-21 13:43] LABS: INR 2.98 (0.86-1.11); PTT,PARTIAL THROMBOPLSTIN TIME 45.9 SEC (23.9-30.7)
[2023-11-21 14:11] LABS: A/G RATIO 0.8 (0.9-1.6); ALBUMIN 2.9 g/dL (3.4-5.0); BILIRUBIN TOTAL 0.9 mg/dL (0.2-1.0); CALCIUM 8.3 mg/dL (8.5-10.1); CARBON DIOXIDE,CO2 25.4 mmol/L (21.0-32.0); CREATININE 6.5 mg/dL (0.6-1.0); EST CRCL DRUG DOSING (CG) 5.91 mL/min; POTASSIUM,K 5.3 mmol/L (3.5-5.1); PROTEIN TOTAL,TP 6.7 g/dL (6.4-8.2)
[2023-11-21 14:17] LABS: BAND ABSOLUTE MAN 0.56; BAND PERCENT MAN 3 %; LYMPHOCYTES ABSOLUTE MAN 2.99 K/uL (1.00-4.80); LYMPHOCYTES PERCENT MAN 16 % (24-44); MONOCYTES ABSOLUTE MAN 2.62 K/uL (0.00-0.80); MONOCYTES PERCENT MAN 14 % (0-8); SEG NEUTROPHILS ABSOLUTE MAN 12.52 K/uL (1.80-7.70); SEG NEUTROPHILS PERCENT MAN 67 % (41-71)
[2023-11-21] MEDS: Norepinephrine Bit/D5W Premix 250 ML IV SCH (15:01)
[2023-11-21] MEDS: Sodium Chloride 0.9% 1,000 ML IV SCH (15:30)
[2023-11-21] MEDS: Lidocaine 1% with EPINEPHrine 1:100,000 50 ML MDV INFILT STA (16:24)
[2023-11-21] MEDS: Lidocaine 1% with EPINEPHrine 1:200,000 30 ML SDV ONE (16:24)
[2023-11-21] MEDS: Lidocaine 1% with EPINEPHrine 1:200,000 30 ML SDV INJECT ONE (16:27)
[2023-11-21 16:51] VITALS: BP 131/75; PULSE 84
== END 2023-11-21 16:49 ==
LOC: MW.ED 11:57
DX: I13.2 Hypertensive heart and chronic kidney disease with heart failure and with stage 5 chronic kidney disease, or end stage renal disease (principal); N18.6 End stage renal disease; I50.9 Heart failure, unspecified; I31.39 Other pericardial effusion (noninflammatory); D68.9 Coagulation defect, unspecified; K72.00 Acute and subacute hepatic failure without coma; I48.91 Unspecified atrial fibrillation; E11.22 Type 2 diabetes mellitus with diabetic chronic kidney disease; Z99.2 Dependence on renal dialysis; Z90.49 Acquired absence of other specified parts of digestive tract; Z79.82 Long term (current) use of aspirin; Z79.899 Other long term (current) drug therapy; Z88.5 Allergy status to narcotic agent; Z79.01 Long term (current) use of anticoagulants; Z86.19 Personal history of other infectious and parasitic diseases
CPT/HCPCS: 33016; 36415; 36430; 36556; 71045; 80053; 83605; 83880; 84484; 85025; 85610; 85730; 86850; 86900; 86901; 86920; 93005; 96365; 96366; 96375; 99285; J2405; J3490; J7030; J7040; P9016; P9017; 36410; 93010

== ENCOUNTER 2025-05-01 02:04 | Emergency (ER) | payer MEDICARE, OTHER ==
[2025-05-01 02:14] LABS: BASOPHILS ABSOLUTE AUTO 0.04 K/uL (0.00-0.20); BASOPHILS PERCENT AUTO 0.3 % (0.0-1.0); EOSINOPHILS ABSOLUTE AUTO 0.11 K/uL (0.00-0.45); EOSINOPHILS PERCENT AUTO 0.8 % (0.0-6.0); IMMATURE GRAN ABSOLUTE AUTO 0.06 K/uL (0.00-0.05); IMMATURE GRAN PERCENT AUTO 0.5 % (0.0-0.4); LYMPHOCYTES ABSOLUTE AUTO 3.06 K/uL (1.00-4.80); LYMPHOCYTES PERCENT AUTO 23.2 % (24.0-44.0); MEAN PLATELET VOLUME 10.8 fL (9.4-12.3); MONOCYTES ABSOLUTE AUTO 1.18 K/uL (0.00-0.80); MONOCYTES PERCENT AUTO 8.9 % (0.0-8.0); NEUTROPHILS ABSOLUTE AUTO 8.76 K/uL (1.80-7.70); NEUTROPHILS PERCENT AUTO 66.3 % (41.0-71.0); NRBC ABSOLUTE 0.00 K/uL (0.00-0.02); NRBC PERCENT 0.0 /100WBC (0.0-0.2); PLATELET COUNT,PLT 236 K/uL (150-400); RED BLOOD CELL COUNT 3.48 M/uL (4.10-5.30); WHITE BLOOD CELL COUNT,WBC 13.21 K/uL (3.9-11.3)
[2025-05-01 02:19] LABS: BICARBONATE,VENOUS 26.0 mEq/L (22-29); PCO2 VENOUS 33.0 mmHG (41-51); PH,VENOUS 7.5 (7.32-7.43); PO2 VENOUS 32.0 mmHG (35-45)
[2025-05-01] MEDS: Ondansetron 4 MG/2 ML SDV IVPUSH ONE (02:19)
[2025-05-01 02:20] LABS: BASE EXCESS VENOUS 2.8 (-2.0-3.0)
[2025-05-01] MEDS: Ondansetron 4 MG/2 ML SDV ONE (02:20)
[2025-05-01] MEDS: Iopamidol 755 Mg/ML 100 ML Bottle IVPUSH ONE (02:44)
[2025-05-01 02:45] LABS: A/G RATIO 0.8 (0.9-1.6); ALANINE AMINOTRANSFERASE,ALT 16.0 IU/L (14-63); ASPARTATE AMNIOTRANSFERASE,AST 9.0 IU/L (15-37); BILIRUBIN TOTAL 0.4 mg/dL (0.2-1.0); BLOOD UREA NITROGEN,BUN 67.0 mg/dL (7.0-18.0); CARBON DIOXIDE,CO2 28.2 mmol/L (21.0-32.0); CHLORIDE,CL 99.0 mmol/L (98-107); CREATININE 7.7 mg/dL (0.6-1.0); EST CRCL DRUG DOSING (CG) 4.92 mL/min; ESTIMATED GFR 5.0 mL/min (>60); GLUCOSE RANDOM 195.0 mg/dL (74-106); POTASSIUM,K 5.2 mmol/L (3.5-5.1); PROTEIN TOTAL,TP 7.8 g/dL (6.4-8.2); SODIUM,NA 140.0 mmol/L (136-145)
[2025-05-01] MEDS: Heparin Sodium 5,000 Units/ML Vial IVPUSH ONE (03:14)
[2025-05-01] MEDS: Heparin Sodium/0.45% NaCl 25,000 UNITS/250 ML BAG IV SCH (03:21)
[2025-05-01 03:44] VITALS: BP 141/60
[2025-05-01 04:00] VITALS: PULSE 72
== END 2025-05-01 04:13 ==
LOC: MW.ED 02:04
DX: I21.3 ST elevation (STEMI) myocardial infarction of unspecified site (principal); E78.00 Pure hypercholesterolemia, unspecified; E11.9 Type 2 diabetes mellitus without complications; Z88.8 Allergy status to other drugs, medicaments and biological substances; Z79.82 Long term (current) use of aspirin; Z79.899 Other long term (current) drug therapy; Z90.49 Acquired absence of other specified parts of digestive tract
CPT/HCPCS: 36415; 71045; 71275; 74174; 80053; 82803; 83735; 84484; 85025; 85730; 92977; 93005; 96365; 96374; 96375; 99285; A9270; J1644; J2270; J2405; J3101; Q9967; 99284